=== PATIENT | female | born 1995 | race Two or more races ===

== ENCOUNTER 2019-09-20 11:40 | Emergency (ER) | payer OTHER ==
[2019-09-20 11:48] VITALS: BP 146/84; PULSE 74; RESP 18; TEMP 98.4
--- NOTE | 2019-09-20 12:10 | ED ---
ENT HPI - General Chief complaint: ENT Stated complaint: ear ache/sore throat Time Seen by Provider: 09/20/19 11:49 Source: patient, RN notes reviewed Mode of arrival: ambulatory Limitations: no limitations - History of Present Illness Initial comments: 23-year-old female presents emergency department she went right and nasal congestion sore throat cough. Patient states symptoms started yesterday no fevers or chills no headache or dizziness. She has not sinus pressure she states is difficult to hear out of her right ear,'s painful. No over-the-co unter cough and cold medications at this time. Denies any chance been sick. - Related Data Previous Rx's Medication Instructions Recorded Amoxicillin/Potassium Clav 1 tab PO Q12HR #20 tab 09/20/19 [Augmentin 875-125 Tablet] Pseudoephedrine 12Hr [Sudafed 12Hr] 120 mg PO Q12H #1 box 09/20/19 Allergies Allergy/AdvReac Type Severity Reaction Status Date / Time No Known Allergies Allergy Verified 09/20/19 11:47 Review of Systems ROS Statement: Those systems with pertinent positive or pertinent negative responses have been documented in the HPI. ROS Other: All systems not noted in ROS Statement are negative. Past Medical History Past Medical History: No Reported History History of Any Multi-Drug Resistant Organisms: None Reported Past Surgical History: No Surgical Hx Reported Past Psychological History: No Psychological Hx Reported Smoking Status: Never smoker Past Alcohol Use History: None Reported Past Drug Use History: None Reported General Exam Limitations: no limitations General appearance: alert, in no apparent distress Head exam: Present: atraumatic, normocephalic, normal inspection Eye exam: Present: normal appearance, PERRL, EOMI. Absent: scleral icterus, conjunctival injection, periorbital swelling ENT exam: Present: mucous membranes moist. Absent: normal exam, normal oropharynx (Postnasal drainage), TM's normal bilaterally (Right TM mild fluid mild erythema) Neck exam: Present: normal inspection, full ROM. Absent: tenderness, meningismus, lymphadenopathy Respiratory exam: Present: normal lung sounds bilaterally. Absent: respiratory distress, wheezes, rales, rhonchi, stridor Cardiovascular Exam: Present: regular rate, normal rhythm, normal heart sounds. Absent: systolic murmur, diastolic murmur, rubs, gallop, clicks Course Vital Signs 09/20/19 11:45 Temperature 98.4 F Pulse Rate 74 Respiratory 18 Rate Blood Pressure 146/84 O2 Sat by Pulse 100 Oximetry Medical Decision Making - Medical Decision Making Patient has a right ear effusion, otitis media was started on antibiotics, decongestant return parameters were discussed. Disposition Clinical Impression: Otitis media, URI (upper respiratory infection) Disposition: HOME SELF-CARE Condition: Stable Instructions (If sedation given, give patient instructions): Earache (ED) Additional Instructions: Please return to the Emergency Department if symptoms worsen or any other jahaira rns. Prescriptions: Amoxicillin/Potassium Clav [Augmentin 875-125 Tablet] 1 tab PO Q12HR #20 tab Pseudoephedrine 12Hr [Sudafed 12Hr] 120 mg PO Q12H #1 box Is patient prescribed a controlled substance at d/c from ED?: No Referrals: Pily Hopper MD [Primary Care Provider] - 1-2 days Time of Disposition: 12:10
== END 2019-09-20 12:14 | disposition home or self-care (01) ==
LOC: EC 11:40
DX: H65.91 Unspecified nonsuppurative otitis media, right ear (principal); J06.9 Acute upper respiratory infection, unspecified
CPT/HCPCS: 99282